=== PATIENT | female | born 1975 | race Hispanic/Latino ===

== ENCOUNTER 2025-04-10 01:01 | Emergency (ER) | payer OTHER ==
[~2025-04-10] VITALS: Ht 170.2 cm; Wt 74.8 kg
[2025-04-10 01:10] VITALS: PULSE 66; RESP 18; TEMP 97.7
[2025-04-10] MEDS: HYDROCODONE/APAP 5MG-325MG TAB PO ONE (01:41)
[2025-04-10] MEDS: CYCLOBENZAPRINE HCL 10 MG TAB PO ONE (01:41)
[2025-04-10] MEDS: KETOROLAC TROMETHAMINE 30 MG/ML VIAL IV STA (01:42)
[2025-04-10] MEDS ORDERED: CYCLOBENZAPRINE5 MG PO (02:00)
[2025-04-10] MEDS ORDERED: KETOROLAC TROME10 MG PO (02:00)
[2025-04-10] MEDS: Morphine 4mg INJECTION 4 MG/ML INJ IV ONE (02:34)
[2025-04-10 03:45] VITALS: BP 135/81; PULSE 66; RESP 18; TEMP 98; O2SAT 98
== END 2025-04-10 03:45 | disposition home or self-care (01) ==
LOC: FSED 01:07
DX: M54.42 Lumbago with sciatica, left side (principal); M54.41 Lumbago with sciatica, right side
CPT/HCPCS: 72131; 81025; 96374; 99284; J1885; J2270

== ENCOUNTER 2025-04-30 21:07 | Emergency (ER) | payer OTHER ==
[~2025-04-30] VITALS: Ht 170.2 cm; Wt 75.3 kg
[~2025-04-30 21:07] MED LIST: CYCLOBENZAPRINE5 MG PO; KETOROLAC TROME10 MG PO
[2025-04-30 21:11] VITALS: PULSE 76; RESP 18; TEMP 98.8
[2025-04-30 22:17] VITALS: BP 121/72; PULSE 76; RESP 18; TEMP 98.8; O2SAT 98
== END 2025-04-30 21:47 | disposition home or self-care (01) ==
LOC: FSED 21:15
DX: Z46.6 Encounter for fitting and adjustment of urinary device (principal)
CPT/HCPCS: 99283